=== PATIENT | female | born 1995 | race African-American/Black ===

== ENCOUNTER 2019-05-05 23:40 | Emergency (ER) | payer MEDICAID ==
[~2019-05-05] VITALS: Ht 162.6 cm; Wt 79.5 kg
[2019-05-05 23:44] VITALS: BP 127/89; TEMP 98
[2019-05-06] MEDS ORDERED: TRIAMCINOLONE A15 GM TP (00:11)
[2019-05-06 00:16] VITALS: PULSE 90
== END 2019-05-06 00:16 | disposition home or self-care (01) ==
LOC: COL.ER 23:40
DX: L20.9 Atopic dermatitis, unspecified (principal); F17.210 Nicotine dependence, cigarettes, uncomplicated

== ENCOUNTER 2020-05-09 15:28 | Emergency (ER) | payer OTHER ==
[~2020-05-09] VITALS: Ht 162.6 cm; Wt 117.3 kg
[~2020-05-09 15:28] MED LIST: TRIAMCINOLONE A15 GM TP
[2020-05-09 16:39] VITALS: BP 132/74; PULSE 84; TEMP 97.8
== END 2020-05-09 16:48 | disposition home or self-care (01) ==
LOC: COL.ER 15:28
PROVIDERS: Emergency Medicine
DX: Z32.02 Encounter for pregnancy test, result negative (principal); Z79.52 Long term (current) use of systemic steroids